=== PATIENT | male | born 1990 | race Caucasian/White ===

== ENCOUNTER 2017-02-11 02:44 | Emergency (ER) | payer OTHER ==
[2017-02-11 02:47] VITALS: BP 118/92
--- NOTE | 2017-02-11 02:48 | EDM.PDOC ---
ED HPI GENERAL MEDICAL PROBLEM - General Chief Complaint: General Stated Complaint: crushing injury on 5th digit of right hand Time Seen by Provider: 02/11/17 02:45 Source of Information: Reports: Patient, Old records ([facility] EMR. No paper hospital chart available.) History Limitations: Reports: No limitations - History of Present Illness INITIAL COMMENTS - FREE TEXT/NARRATIVE: The patient was brought to the emergency room via transport vehicle from [facility] for evaluation of a crush injury of his left fifth finger, which occurred at about 02:00 A.m. this morning. No history of foreign body, paresthesias, neurological deficits, or other complaints or injuries. He is uncertain about his last tetanus booster. He has not injured this extremity in the past. The patient is right-handed. No other recent complaints, including recent fever, cough, abdominal pain, etc. Onset: today, sudden Onset Date: 02/11/17 Onset Time: 02:00 Duration: Constant Location: Reports: upper extremity, left Quality: Reports: Ache, Throbbing Severity: moderate Improves with: Reports: Rest Worsens with: Reports: Movement Context: Reports: Trauma (As above) Associated Symptoms: Denies: confusion, chest pain, cough, diaphoresis, fever/ chills, headaches, malaise, nausea/vomiting, shortness of breath, syncope, weakness Treatments G[employer]TER: Reports: Dressing(s) right hand Pain Score (Numeric/FACES): 8 - Related Data Allergies Allergy/AdvReac Type Severity Reaction Status Date / Time No Known Allergies Allergy Verified 02/11/17 02:51 Home Meds: Home Meds Folic Acid/Multivit-Min/Lutein [Multi-Vitamin Gummies] 1 each PO DAILY 02/11/17 [History] Past Medical History HEENT History: Reports: None Cardiovascular History: Reports: Hypertension, Other (see below). Denies: Arrhythmia, CAD, Heart murmur, High cholesterol, Syncope Other Cardiovascular History: Previous history of hypertension but no recent medical therapy required Respiratory History: Reports: None. Denies: Asthma, COPD Gastrointestinal History: Reports: None. Denies: Gastritis, GERD Genitourinary History: Reports: None Musculoskeletal History: Reports: Arthritis, Back pain, chronic, Fracture, Osteoarthritis, Other (see below) Other Musculoskeletal History: Occasional low back pain with previous Worker's Compensation injury and mild scoliosis, previous right hand fifth MCP/proximal phalangeal fracture requiring surgery as below Neurological History: Reports: None Psychiatric History: Reports: None. Denies: Anxiety, Depression Endocrine/Metabolic History: Reports: None Hematologic History: Reports: None Immunologic History: Reports: None Oncologic (Cancer) History: Reports: None Dermatologic History: Reports: None - Past Surgical History Head Surgeries/Procedures: Reports: None HEENT Surgical History: Reports: None. Denies: Adenoidectomy, Eye surgery, Laser surgery, LASIK, Myringotomy w tube(s), Naso-sinus surgery, Oral surgery, Tonsillectomy Cardiovascular Surgical History: Reports: None. Denies: Varicose, Vascular surgery Respiratory Surgical History: Reports: None GI Surgical History: Reports: None. Denies: Appendectomy, Cholecystectomy, Colonoscopy, EGD, Hernia, abdominal, Hernia, inguinal, Hernia repair/other Endocrine Surgical History: Reports: None Neurological Surgical History: Reports: None. Denies: C-Spine, Discectomy, Laminectomy, Lumbar spine, Spinal fusion, Vertebroplasty Musculoskeletal Surgical History: Reports: Arthroscopic procedure, ORIF, Shoulder surgery, Other (see below). Denies: Carpal tunnel, Ganglion cyst, Joint replacement Other Musculoskeletal Surgeries/Procedures:: Arthroscopic right shoulder surgery at age 16, pin placement of the proximal phalanx of digit #5 of the right hand at age 14 Oncologic Surgical History: Reports: None Dermatological Surgical History: Reports: None Social & Family History - Tobacco Use Smoking Status *Q: Never Smoker Second Hand Smoke Exposure: Yes Source of Second Hand Smoke Exposure: Mother smokes and refuses to quit. He does not want tobacco cessation information Second Hand Smoke Education Provided: Patient Refused - Living Situation & Occupation Living situation: Reports: single (No children), with family (Mother) Occupation: employed ([employer]) ED ROS GENERAL - Review of Systems Review Of Systems: ROS reveals no pertinent complaints other than HPI. ED EXAM, GENERAL - Physical Exam Exam: See Below Exam Limited By: No limitations General Appearance: alert, WD/WN, no apparent distress Head: atraumatic, normocephalic Neck: normal inspection, supple, non-tender, full range of motion. No: lymphadenopathy (L), lymphadenopathy (R), thyromegaly Respiratory/Chest: no respiratory distress, lungs clear, normal breath sounds, no accessory muscle use, chest non-tender. No: pleural rub, retractions Cardiovascular: normal peripheral pulses, regular rate, rhythm, no edema, no gallop, no JVD, no murmur, no rub. No: gallop/S3, gallop/S4, friction rub Peripheral Pulses: 4+: radial (L), radial (R) GI/Abdominal: normal bowel sounds, soft, non tender, no organomegaly, no distention, no abnormal bruit, no mass. No: guarding (Male) Exam: Deferred Rectal (Males) Exam: Deferred Back Exam: normal inspection, full range of motion. No: CVA tenderness (L), CVA tenderness (R), muscle spasm Extremities: normal range of motion, no pedal edema, normal capillary refill, other (Mild palpation pain over the distal aspect of digit #5 of the left hand with small 0.25 cm superficial lacerations noted both on the flexor and dorsal surfaces, stable chronic osteoarthritic changes of the hands bilaterally including deformity/angulation of his distal phalanx of this fifth fingers bilaterally by patient history, no foreign body) Neurological: alert, oriented, CN II-XII intact, normal cognition, normal gait, normal reflexes, no motor/sensory deficits Psychiatric: normal affect Skin Exam: Wound/incision (As above). No: Diaphoretic, Ecchymosis Lymphatic: no adenopathy Course - Vital Signs Last Recorded V/S: Last Vital Signs Temp 36.6 C 02/11/17 02:46 Pulse 67 02/11/17 02:46 Resp 18 02/11/17 02:46 BP 118/92 H 02/11/17 02:46 Pulse Ox 100 02/11/17 02:46 Vital Signs - 24 hr 02/11/17 02:46 Temperature [ 36.6 C Oral] Pulse, 67 Peripheral [ Left Pulse Oximetry] Respiratory 18 Rate Blood Pressure 118/92 H [Left Upper Arm ] O2 Sat by Pulse 100 Oximetry - Orders/Labs/Meds Orders: Active Orders 24 hr Category Date Time Status Vaccines to be Administered [RC] PER UNIT ROUTINE Care 02/11/17 02:49 Active Fingers Fifth Digit Rt F9 [CR] Stat Exams 02/11/17 02:48 Taken Obtain Past Medical Record [OM.PC] Routine Oth 02/11/17 02:48 Active Labs: None Meds: Medications Discontinued Medications Generic Name Dose Route Start Last Admin Trade Name Freq PRN Reason Stop Dose Admin Diphtheria/Tetanus/Acell Pertussis 0.5 ml 02/11/17 02:49 02/11/17 03:05 Adacel IM 02/11/17 02:50 0.5 ml .ONCE ONE Administration Neomycin/Polymyxin/Bacitracin 1 each 02/11/17 02:49 02/11/17 04:04 Triple Antibiotic Oint TOP 02/11/17 02:50 1 each ONETIME ONE Administration - Radiology Interpretation Free Text/Narrative:: X-rays of digit #5 of the hand, complete, shows no evidence of fracture, dislocation, or foreign body. Mild osteoarthritic changes Departure - Departure Time of Disposition: 05:05 Disposition: Home, Self-Care 01 Condition: good Clinical Impression: Laceration, Tobacco abuse counseling Osteoarthritis Qualifiers: Osteoarthritis location: multiple joints Osteoarthritis type: primary Qualified Code(s): M15.0 - Primary generalized (osteo)arthritis Hypertension Qualifiers: Hypertension type: essential hypertension Qualified Code(s): I10 - Essential ( primary) hypertension Referrals: Naomie Hirsch NP [Primary Care Provider] - Forms: ED Department Discharge Additional Instructions: 1. Follow up with your regular provider in 10-14 days as needed, if symptoms persist. 2. Tylenol 650 mg by mouth every 4 hours and/or OTC ibuprofen 2-3 tabs by mouth every 6 hours with food as directed./needed. 3. Work excuse- See Form 4. Antibacterial soap wash/soak with subsequent antibacterial dressing such as Neosporin, etc. as directed 2 times per day until the wound or laceration site completely heals. Keep the area clean and dry with activity restrictions as discussed. 5. Stop all tobacco exposure REGINALDO as directed with counselling, information, etc. given - Problem List & Annotations (1) Laceration SNOMED Code(s): 728854488 Code(s): T14.8 - OTHER INJURY OF UNSPECIFIED BODY REGION Status: Acute Priority: High Onset Date: 02/11/17 Annotation/Comment:: Lacerations did not require surgical repair. Laceration sites were cleansed with Betadine by the nurse with Neosporin dressing placed. DTaP was given. Work excuse/[place] and Workmen's Compensation forms were completed. Activity restrictions, wound care, etc. (2) Tobacco abuse counseling SNOMED Code(s): 509455895, 966017228, 746394853 Code(s): Z71.6 - TOBACCO ABUSE COUNSELING Status: Chronic Priority: Medium Annotation/Comment:: Tobacco exposure discussed with the patient refusing recommended tobacco cessation (3) Osteoarthritis SNOMED Code(s): 218488245 Code(s): M19.90 - UNSPECIFIED OSTEOARTHRITIS, UNSPECIFIED SITE Status: Chronic Priority: Medium Annotation/Comment:: Otherwise stable by patient history Qualifiers: Osteoarthritis location: multiple joints Osteoarthritis type: primary Qualified Code(s): M15.0 - Primary generalized (osteo)arthritis (4) Hypertension SNOMED Code(s): 13907025 Code(s): I10 - ESSENTIAL (PRIMARY) HYPERTENSION Status: Chronic Priority : Medium Annotation/Comment:: Not requiring medical therapy at this time as above. Qualifiers: Hypertension type: essential hypertension Qualified Code(s): I10 - Essential (primary) hypertension - Problem List Review Problem List Initiated/Reviewed/Updated: Yes - My Orders Last 24 Hours: My Active Orders 02/11/17 02:48 Fingers Fifth Digit Rt F9 [CR] Stat Obtain Past Medical Record [OM.PC] Routine 02/11/17 02:49 Vaccines to be Administered [RC] PER UNIT ROUTINE - Assessment/Plan Last 24 Hours: My Active Orders 02/11/17 02:48 Fingers Fifth Digit Rt F9 [CR] Stat Obtain Past Medical Record [OM.PC] Routine 02/11/17 02:49 Vaccines to be Administered [RC] PER UNIT ROUTINE Assessment:: As above Plan: As above. Extensive precautions were given to the patient, who is in agreement with the treatment plan. See Patient Instructions for further treatment and plan.
[2017-02-11] MEDS ORDERED: Bacitracin/Neomycin/Polymyxin B Oint 0.9 GM U/D Packet TOP ONE (02:49)
[2017-02-11] MEDS ORDERED: Diphtheria,Pertussis(Acell),Tetanus Vaccine 0.5 ML SDV IM ONE (02:49)
== END 2017-02-11 05:00 | disposition home or self-care (01) ==
LOC: LL.ED 02:44
DX: S61.217A Laceration without foreign body of left little finger without damage to nail, initial encounter (principal); I10 Essential (primary) hypertension; M15.0 Primary generalized (osteo)arthritis; Z23 Encounter for immunization; Z71.6 Tobacco abuse counseling; W23.0XXA Caught, crushed, jammed, or pinched between moving objects, initial encounter
CPT/HCPCS: 73140-F9; 90471; 90715; 99282

== ENCOUNTER 2024-03-25 18:07 | Emergency (ER) | payer BC, OTHER ==
[2024-03-25] MEDS: Diazepam 5 MG Tab PO ONE (19:07)
[2024-03-25 19:29] LABS: ALBUMIN 3.9 g/dL (3.4-5.0); BASOPHILS ABSOLUTE AUTO 0.01 K/uL (0.00-0.20); BASOPHILS PERCENT AUTO 0.1 % (0.0-2.0); BILIRUBIN TOTAL 0.6 mg/dL (0.2-1.0); CALCIUM 8.7 mg/dL (8.5-10.1); CARBON DIOXIDE,CO2 24.5 mmol/L (21.0-32.0); CREATININE 1.1 mg/dL (0.51-1.17); EOSINOPHILS ABSOLUTE AUTO 0.01 K/uL (0.00-0.50); EOSINOPHILS PERCENT AUTO 0.1 % (0.0-5.0); EST CRCL DRUG DOSING (CG) 61.28 mL/min; HEMATOCRIT 40.3 % (39.0-49.0); HEMOGLOBIN 14.5 g/dL (13.1-16.8); LYMPHOCYTES ABSOLUTE AUTO 0.92 K/uL (0.50-3.50); LYMPHOCYTES PERCENT AUTO 13.4 % (10.0-50.0); MAGNESIUM 1.8 mg/dL (1.8-2.4); MEAN CORPUSCULAR HEMOGLOBIN 31.9 pg (28.2-33.3); MEAN CORPUSCULAR VOLUME 88.8 fL (84.0-98.0); MONOCYTES ABSOLUTE AUTO 0.42 K/uL (0.00-1.00); MONOCYTES PERCENT AUTO 6.1 % (2.0-14.0); NEUTROPHILS ABSOLUTE AUTO 5.51 K/uL (1.40-7.00); NEUTROPHILS PERCENT AUTO 80.3 % (45.0-80.0); PLATELET COUNT,PLT 341 K/uL (150-350); POTASSIUM,K 3.1 mmol/L (3.5-5.1); PROTEIN TOTAL,TP 7.1 g/dL (6.4-8.2); RED BLOOD CELL COUNT 4.54 M/uL (4.33-5.41); RED CELL DISTRIBUTION WIDTH 12.2 % (11.2-14.1); WHITE BLOOD CELL COUNT,WBC 6.9 K/uL (4.0-10.2)
[2024-03-25 19:30] LABS: ANION GAP 14.6 meq/L (7-15)
[2024-03-25] MEDS: Metoprolol Tartrate 25 MG Tab PO ONE (19:55)
[2024-03-25] MEDS: Naproxen 250 MG Tab PO ONE (20:30)
[2024-03-25] MEDS: Potassium Chloride 20 MEQ Tab.ER PO ONE (20:30)
[2024-03-25] MEDS: Magnesium Oxide 400 MG Tab PO ONE (20:30)
[2024-03-25 21:25] VITALS: BP 138/103; PULSE 78
== END 2024-03-25 20:50 | disposition home or self-care (01) ==
LOC: LL.ED 18:07 → SUPCPDRO 18:07 → LL.ED 20:50
DX: S00.83XA Contusion of other part of head, initial encounter (principal); S20.219A Contusion of unspecified front wall of thorax, initial encounter; E87.6 Hypokalemia; I10 Essential (primary) hypertension; Z79.899 Other long term (current) drug therapy; Y04.2XXA Assault by strike against or bumped into by another person, initial encounter
CPT/HCPCS: 36415; 70110; 71046; 80053; 83735; 85025; 99285; A9270-GY